=== PATIENT | male | born 1980 | race Caucasian/White ===

== ENCOUNTER 2021-06-04 10:22 | Emergency (ER) | payer SELFPAY ==
[~2021-06-04] VITALS: Ht 175.3 cm; Wt 70.3 kg
--- NOTE | 2021-06-04 12:07 | ED GI ---
General Chief Complaint: Rect Problems Stated Complaint: RECTAL BLEEDING Nursing Triage Note: PT REPORTS LAST COUPLE OF DAYS HE HAS HAD RECTAL BLEEDING WHEN USING THE RESTROOM. PT REPORTS HE WENT TO WORK THIS AM AND WAS CONCERNED FOR THE AMOUNT OF BLOOD IN TOILET. PT HAS HAD HEMORRHOIDS FOR THE LAST 3 YEARS. Source of Information: Patient, Family ([place]) Exam Limitations: No Limitations (LEVI GOETZ STUDENT) History of Present Illness Date Seen by Provider: Jun 04, 2021 Time Seen by Provider: 11:40 Initial Comments Pt presents to ED with fiance at bedside with complaints of rectal pain/bleeding. He states that he started having heavy, BRBPR w/ bowel movements starting about 3 days ago with associated severe pain and bulging hemorrhoids. He has a history of hemorrhoids with intermittent streaky bleeding for the past few years but it has never been as heavy and painful as it has been the past few days. He denies associated symptoms; lightheadedness, abd pain, N/V, chest pain, SOB. Timing/Duration: 3-4 Days Severity/Quality: Severe, Aching Location: Other (rectal) Radiation: No Radiation Activities at Onset: Other (moderate discomfort/pain at rest and with sitting/pressure, severe with bowel movements) Modifying Factors: Worsens With Defecating; Improves With Other (hydrocortisone cream with minimal relief) Associated Symptoms: No Back Pain, No Chest Pain, No Fever/Chills, No Fatigue, No Headache, No Heartburn, No Nausea/Vomiting, No Shortness of Air (LEVI GOETZ STUDENT) Initial Comments Patient reports passing hard stools, no diarrhea. He drinks 6-8 bottles of water daily and eats fruits/vegetables daily. He will strain for 10 min to pass stools. No family history of colorectal cancer. The patient has no history of chronic GI problems. He has never had a colonoscopy.Patient reports a 10-12 lb weight loss over the last few years. 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 He uses a pillow to sit on, for rectal pain. He has used OTC external hemorrhoid creams, with continued symptoms. (RICKIE LANGLEY) Allergies and Home Medications Allergies Coded Allergies: No Known Drug Allergies (Unverified , 09/07/11) Home Medications Hydrocortisone Acetate 25 Mg Supp.rect, 25 MG RC TID Prescribed by: RICKIE LANGLEY on 06/04/21 1253 Patient Home Medication List Home Medication List Reviewed: Yes (LEVI GOETZ STUDENT) Review of Systems Review of Systems Constitutional: No chills, No dizziness, No fever EENTM: No Blurred Vision, No Ear Pain, No Mouth Pain Respiratory: Denies Cough, Denies Shortness of Air Cardiovascular: Denies Chest Pain, Denies Edema, Denies Lightheadedness Gastrointestinal: Denies Abdomen Distended, Denies Abdominal Pain, Denies Constipated, Denies Diarrhea, Denies Nausea; Rectal Bleeding Genitourinary: Denies Burning, Denies Drainage, Denies Flank Pain, Denies Hematuria Musculoskeletal: No back pain, No joint pain Skin: No change in color, No change in hair/nails (LEVI GOETZ) All Other Systems Reviewed Negative Unless Noted: Yes (LEVI GOETZ) Past Uyktufx-Qvgsca-Odlppt Hx Patient Social History Tobacco Use?: Yes Tobacco type used: Cigarettes Smoking Status: Current Everyday Smoker Substance use?: Yes Substance type: Marijuana Substance frequency: Daily Alcohol Use?: Yes Alcohol Frequency: Couple times a week Pt feels they are or have been: No (LEVI GOETZ) Past Medical History Reproductive Disorders: No (LEVI GOETZ) Physical Exam Vital Signs Vital Signs - First Documented 06/04/21 10:27 Temp 36.5 Pulse 104 Resp 14 B/P (MAP) 135/60 (85) Pulse Ox 100 (RICKIE LANGLEY) Vital Signs Capillary Refill : Less Than 3 Seconds (LEVI GOETZ STUDENT) Height/Weight/BMI Height: '" Weight: lbs. oz. kg; 22.00 BMI Method: General Appearance: WD/WN, no apparent distress HEENT: PERRL/EOMI, normal ENT inspection, pharynx normal Neck: non-tender, full range of motion, supple, normal inspection Respiratory: chest non-tender, lungs clear, normal breath sounds, no respiratory distress, no accessory muscle use Cardiovascular: normal peripheral pulses, regular rate, rhythm, no edema, no murmur Peripheral Pulses: 2+ Radial Pulses (R), 2+ Radial Pulses (L) Gastrointestinal: normal bowel sounds, non tender, soft, mass (R inguinal, nontender) Extremities: normal range of motion, non-tender, normal inspection, no pedal edema, normal capillary refill Back: normal inspection, no CVA tenderness, no vertebral tenderness Male: normal genitalia, other (R inguinal mass, nontender) Neurologic/Psychiatric: no motor/sensory deficits, alert, normal mood/affect, oriented x 3 Skin: normal color, warm/dry Lymphatic: no adenopathy (LEVI GOETZ MED STUDENT) Rectal: normal rectal tone, hemorrhoids (internal, inflamed, no active bleeding. No stool in rectum to check for occult blood. ), tenderness (RICKIE LANGLEY) Progress/Results/Core Measures Results/Orders Lab Results Laboratory Tests Test 06/04/21 12:22 Range/Units White Blood Count 8.5 4.3-11.0 10^3/uL Red Blood Count 4.74 4.30-5.52 10^6/uL Hemoglobin 15.8 13.3-17.7 g/dL Hematocrit 47 40-54 % Mean Corpuscular Volume 99 80-99 fL Mean Corpuscular Hemoglobin 33 25-34 pg Mean Corpuscular Hemoglobin Concent 34 32-36 g/dL Red Cell Distribution Width 12.9 10.0-14.5 % Platelet Count 294 130-400 10^3/uL Mean Platelet Volume 9.5 9.0-12.2 fL Immature Granulocyte % (Auto) 0 % Neutrophils (%) (Auto) 64 42-75 % Lymphocytes (%) (Auto) 27 12-44 % Monocytes (%) (Auto) 6 0-12 % Eosinophils (%) (Auto) 2 0-10 % Basophils (%) (Auto) 1 0-10 % Neutrophils # (Auto) 5.4 1.8-7.8 10^3/uL Lymphocytes # (Auto) 2.3 1.0-4.0 10^3/uL Monocytes # (Auto) 0.5 0.0-1.0 10^3/uL Eosinophils # (Auto) 0.2 0.0-0.3 10^3/uL Basophils # (Auto) 0.0 0.0-0.1 10^3/uL Immature Granulocyte # (Auto) 0.0 0.0-0.1 10^3/uL Sodium Level 139 135-145 MMOL/L Potassium Level 4.6 3.6-5.0 MMOL/L Chloride Level 106 98-107 MMOL/L Carbon Dioxide Level 23 21-32 MMOL/L Anion Gap 10 5-14 MMOL/L Blood Urea Nitrogen 11 7-18 MG/DL Creatinine 0.98 0.60-1.30 MG/DL Estimat Glomerular Filtration Rate 84 BUN/Creatinine Ratio 11 Glucose Level 74 70-105 MG/DL Calcium Level 9.6 8.5-10.1 MG/DL Corrected Calcium 9.4 8.5-10.1 MG/DL Total Bilirubin 0.7 0.1-1.0 MG/DL Aspartate Amino Transf (AST/SGOT) 27 5-34 U/L Alanine Aminotransferase (ALT/SGPT) 29 0-55 U/L Alkaline Phosphatase 54 40-136 U/L Total Protein 7.4 6.4-8.2 GM/DL Albumin 4.2 3.2-4.5 GM/DL (RICKIE LANGLEY) Vital Signs/I&O 06/04/21 06/04/21 10:27 13:03 Temp 36.5 Pulse 104 88 Resp 14 14 B/P (MAP) 135/60 (85) 132/65 (85) Pulse Ox 100 100 (RICKIE LANGLEY) Blood Pressure Mean: 85 Progress Progress Note : Time: 12:00 Progress Note Assumed care of patient from Dr. Darling, received report. Assessed patient and reviewed history. Explained that the hemorrhoids are internal, so the external creams are not effective, will start a suppository. Stressed the importance of obtaining a PCP and follow up. Explained that we cannot see the internal rectum and due to the inflammation/tenderness, it was difficult to palpate for a mass or other abnormality, so a Colonoscopy is warranted, if his symptoms do not improve. 1215 discharge instructions and return precautions reviewed with the patient and his fiance. All questions answered. (RICKIE LANGLEY) Progress Note : Progress Note I attest that I saw this patient alongside the medical student and agree with his documented history, physical exam and review of systems except as otherwise noted. (MAHAMED DARLING) Departure Impression Primary Impression: Hemorrhoids Qualified Codes: K64.1 - Second degree hemorrhoids Additional Impression: Rectal bleeding Disposition: 01 HOME, SELF-CARE Condition: Improved Departure-Patient Inst. Decision time for Depature: 12:45 (RICKIE LANGLEY) Referrals: [facility] DO NO,LOCAL PHYSICIAN (PCP) Primary Care Physician Patient Instructions: Hemorrhoids (DC) Add. Discharge Instructions: Use suppositories as prescribed, insert 3 times daily. Take an [id number] stool softener twice daily. You may apply Tucks pads externally for relief of symptoms. Continue to increase water in your diet, 16 ounces every 2 hours while awake. Eat a high-fiber diet including a variety of fruits and vegetables daily. Avoid sitting on the toilet any longer than necessary or straining to pass stools. Warm moist compresses, to rectum for pain or inflammation. Establish care with a primary care provider at [facility]. If symptoms continue, call a general surgeon for referral to have a colonoscopy. Sit on an intertube (child's float), to avoid pressure on your rectum. Return to the emergency department for new, urgent healthcare needs. All discharge instructions reviewed with patient and/or family. Voiced understanding. Scripts Hydrocortisone Acetate (Hydrocortisone Acetate) 25 Mg Supp.rect 25 MG RC TID, #40 SUPP.RECT 0 Refills Prov: RICKIE LANGLEY 06/04/21 Reviewed assessment, documentation and plan of care with the medical student; agreed with all. Assessed patient myself and present for rectal exam. (RICKIE LANGLEY) LEVI GOETZ MED STUDENT Jun 04, 2021 12:07 RICKIE LANGLEY Jun 04, 2021 12:42 MAHAMED DARLING Jun 04, 2021 19:28
[2021-06-04 12:25] LABS: BASOPHILS % (AUTO) 1 % (0-10); EOSINOPHILS # (AUTO) 0.2 10^3/uL (0.0-0.3); EOSINOPHILS % (AUTO) 2 % (0-10); HEMATOCRIT 47 % (40-54); HEMOGLOBIN 15.8 g/dL (13.3-17.7); LYMPHOCYTES # (AUTO) 2.3 10^3/uL (1.0-4.0); LYMPHOCYTES % (AUTO) 27 % (12-44); MEAN CORPUSCULAR HEMOGLOBIN 33 pg (25-34); MEAN CORPUSCULAR HGB CONC 34 g/dL (32-36); MEAN CORPUSCULAR VOLUME 99 fL (80-99); MEAN PLATELET VOLUME 9.5 fL (9.0-12.2); MONOCYTES # (AUTO) 0.5 10^3/uL (0.0-1.0); MONOCYTES % (AUTO) 6 % (0-12); NEUTROPHILS # (AUTO) 5.4 10^3/uL (1.8-7.8); NEUTROPHILS % (AUTO) 64 % (42-75); PLATELET COUNT 294 10^3/uL (130-400); WHITE BLOOD COUNT 8.5 10^3/uL (4.3-11.0)
[2021-06-04 12:37] LABS: ALBUMIN 4.2 GM/DL (3.2-4.5); POTASSIUM 4.6 MMOL/L (3.6-5.0)
[2021-06-04 12:38] LABS: CALCIUM 9.6 MG/DL (8.5-10.1)
[2021-06-04 12:39] LABS: TOTAL PROTEIN 7.4 GM/DL (6.4-8.2)
[2021-06-04 12:41] LABS: BILIRUBIN,TOTAL 0.7 MG/DL (0.1-1.0)
[2021-06-04 12:43] LABS: CREATININE SERUM 0.98 MG/DL (0.60-1.30)
[2021-06-04] MEDS ORDERED: HYDR25SU5 RC (12:53)
[2021-06-04 13:03] VITALS: BP 132/65
--- OUTSIDE RECORDS SUMMARY | 2021-06-04 16:13 | XMS REPORT | Clinical Summary ---
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 Role Phone PCP Unavailable Allergies No Known Active Allergies Medications No known medications Active Problems Not on file Immunizations Name Administration Dates Next Due Tdap 07/11/2014 Social History Date Tobacco Use Types Packs/Day Years Used Current Every Day Smoker Cigarettes 1 20 Smokeless Tobacco: Never Used Comments Alcohol Use Standard Drinks/Week drinks beer three times a week Yes 0 (1 standard drink = 0.6 o z pure alcohol) Sex Assigned at Date Recorded Not on file Last Filed Vital Signs Reading Time Taken Comments Vital Sign 121/80 07/11/2014 2:51 PM CDT Blood Pressure 90 07/11/2014 2:51 PM CDT Pulse 37.1 C (98.7 F) 07/11/2014 2:51 PM CDT Temperature 16 07/11/2014 2:51 PM CDT Respiratory Rate 96% 07/11/2014 2:51 PM CDT Oxygen Saturation - - Inhaled Oxygen Concentration 70.3 kg (155 lb) 07/11/2014 2:51 PM CDT Weight 175.3 cm (5' 9") 07/11/2014 2:51 PM CDT Height 22.89 07/11/2014 2:51 PM CDT Body Mass Index Plan of Treatment Not on file Results Not on filefrom Last 3 Months
== END 2021-06-04 13:02 | disposition home or self-care (01) ==
LOC: EDUNIT# 10:22 → ER 10:24
DX: K64.8 Other hemorrhoids (principal); F17.210 Nicotine dependence, cigarettes, uncomplicated
CPT/HCPCS: 36415; 80053; 85025; 99281